=== PATIENT | female | born 1960 | race Caucasian/White ===

== ENCOUNTER → 2017-09-04 | Outpatient (CLI) | payer BC ==
[~2017-09-04] MED LIST: CLON-365 PO; CYCL-259 PO; HYDR-882 PO; SERT25TA PO
== END | disposition home or self-care (01) ==
LOC: STAR 14:44
PROVIDERS: ATTEND Neurological Surgery
DX: Z01.818 Encounter for other preprocedural examination (principal); M51.36 Other intervertebral disc degeneration, lumbar region
CPT/HCPCS: 36415; 71020; 80048; 81003; 85025; 85610; 85730; 93005

== ENCOUNTER 2017-09-09 07:51 | Inpatient (IN) | payer BC ==
[2017-09-04 15:20] VITALS: BP 119/82
[2017-09-04 16:04] LABS: BLOOD UREA NITROGEN 16 mg/dL (7-18)
[2017-09-04 16:25] LABS: HEMATOCRIT 49.7 % (34.6-47.8); HEMOGLOBIN 16.7 g/dL (11.7-16.4)
[~2017-09-09] VITALS: Ht 172.7 cm; Wt 68.0 kg
[~2017-09-09 07:51] MED LIST changes: +BACITRACIN 50,000 UNIT ONE; +BUPIVACAINE 0.25% ONE; +BUPIVACAINE/PF 0.5% ONE; +EPINEPHRINE 1 MG/ML, 1ML ONE; +LIDOCAINE/PF 1%, 30ML ONE; +THROMBIN 5,000 UNIT VIAL TP ONE
[2017-09-09] MEDS ORDERED: LIDOCAINE 1%, 2ML ONE (08:09)
[2017-09-09] MEDS ORDERED: LACTATED RINGERS 1,000 ML IV SCH (08:12)
[2017-09-09] MEDS ORDERED: LIDOCAINE 1%, 2ML SQ PRN (08:30)
[2017-09-09] MEDS ORDERED: FLU VACC QS2017-18 (36MOS+) UP/PF 0.5 ML IM-VACC ONE (09:00)
[2017-09-09] MEDS ORDERED: REMIFENTANIL 2 MG ONE (11:10)
[2017-09-09] MEDS ORDERED: PROPOFOL 10 MG/ML, 20ML ONE ×2 (11:10→11:15)
[2017-09-09] MEDS ORDERED: PROPOFOL 50 ML ONE (11:10)
[2017-09-09] MEDS ORDERED: FENTANYL PF 100 MCG/2ML ONE ×3 (11:11→15:31)
[2017-09-09] MEDS ORDERED: MIDAZOLAM 1 MG/ML, 2ML ONE (11:11)
[2017-09-09] MEDS ORDERED: GLYCOPYRROLATE 0.2MG/1ML, 5ML ONE (11:15)
[2017-09-09] MEDS ORDERED: ONDANSETRON 2MG/ML, 2ML ONE (11:15)
[2017-09-09] MEDS ORDERED: SUCCINYLCHOLINE 20 MG/ML, 10ML ONE (11:15)
[2017-09-09] MEDS ORDERED: DEXAMETHASONE 4 MG/ML, 1ML ONE (11:15)
[2017-09-09] MEDS ORDERED: CEFAZOLIN 1,000 MG ONE (11:15)
[2017-09-09] MEDS ORDERED: METOCLOPRAMIDE 5 MG/ML, 2ML ONE (11:15)
[2017-09-09] MEDS ORDERED: KETAMINE 10 MG/ML, 20ML ONE (11:15)
[2017-09-09] MEDS ORDERED: LABETALOL 5MG/ML, 20ML IV PRN (12:00)
[2017-09-09] MEDS ORDERED: ONDANSETRON 2MG/ML, 2ML IVPush PRN ×2 (12:00→15:00)
[2017-09-09] MEDS ORDERED: hydrALAzine 20 MG/ML, 1ML IV PRN (12:00)
[2017-09-09] MEDS ORDERED: EPHEDRINE 50 MG/ML, 1ML IVPush PRN (12:00)
[2017-09-09] MEDS ORDERED: MIDAZOLAM 1 MG/ML, 2ML IV PRN (12:00)
[2017-09-09] MEDS ORDERED: ALBUTEROL SULFATE 2.5 MG/3 ML NPPB PRN (12:00)
[2017-09-09] MEDS ORDERED: OXYcodone 5 MG/5 ML ORAL.SOL UDC PO PRN (12:00)
[2017-09-09] MEDS ORDERED: MEPERIDINE/PF 25MG/0.5ML IVPush PRN (12:00)
[2017-09-09] MEDS ORDERED: METOCLOPRAMIDE 5 MG/ML, 2ML IV PRN (12:00)
[2017-09-09] MEDS ORDERED: VANCOMYCIN 1,000 MG ONE (12:08)
[2017-09-09] MEDS ORDERED: HYDROmorphone 1 MG/ML, 1ML ONE (12:25)
[2017-09-09] MEDS ORDERED: VANCOMYCIN 1,000 MG IM ONE (13:50)
[2017-09-09] MEDS ORDERED: HYDROmorphone 2 MG/ML, 1ML ONE (14:44)
[2017-09-09] MEDS: FENTANYL PF 100 MCG/2ML IV PRN ×4 (14:45→15:37)
[2017-09-09] MEDS: HYDROmorphone 1 MG/ML, 1ML IV PRN ×4 (14:47→15:19)
[2017-09-09] MEDS ORDERED: HYDROcodone/APAP 5/325 TABLET PO PRN (15:00)
[2017-09-09] MEDS ORDERED: DIPHENHYDRAMINE 50 MG CAPSULE PO PRN (15:00)
[2017-09-09] MEDS ORDERED: PROMETHAZINE 25 MG/ML, 1ML IM PRN (15:00)
[2017-09-09] MEDS ORDERED: DIPHENHYDRAMINE 50 MG/ML, 1ML IVPush PRN (15:00)
[2017-09-09] MEDS ORDERED: LABETALOL 5MG/ML, 20ML IVPush PRN (15:00)
[2017-09-09] MEDS ORDERED: BISACODYL 10 MG SUPP PR PRN (15:00)
[2017-09-09] MEDS ORDERED: PHARMACY MAY ADJ FOR RENAL FX MC PRN (15:00)
[2017-09-09 18:45] VITALS: BP 112/73
[2017-09-09] MEDS: SODIUM CHLORIDE FLUSH 10ML SYR IVF SCH (19:58)
[2017-09-09] MEDS: CEFAZOLIN PMX 1GM/50ML 50 ML IVPB SCH (19:58)
[2017-09-09] MEDS: METHOCARBAMOL 750 MG TABLET PO PRN (20:03)
[2017-09-09] MEDS: GABAPENTIN 300 MG CAPSULE PO SCH (23:08)
[2017-09-09] MEDS: OXYcodone/APAP 5/325MG TABLET PO PRN (23:08)
[2017-09-09] MEDS: NS + 20MEQ KCL 1,000 ML IV SCH (23:08)
[2017-09-09 23:17] VITALS: BP 121/73
[2017-09-10] MEDS ORDERED: HYDROmorphone 2 MG/ML, 1ML ONE ×5 (00:35→21:37)
[2017-09-10] MEDS: HYDROmorphone 1 MG/ML, 1ML IV PRN ×5 (00:38→21:40)
[2017-09-10] MEDS: CEFAZOLIN PMX 1GM/50ML 50 ML IVPB SCH (03:43)
[2017-09-10] MEDS: OXYcodone/APAP 5/325MG TABLET PO PRN (04:00)
[2017-09-10 04:53] VITALS: BP_SYST 111; BP_SYST 118; BP_DIAS 56; BP_DIAS 76
[2017-09-10] MEDS: METHOCARBAMOL 750 MG TABLET PO PRN (05:49)
[2017-09-10 05:50] LABS: HEMATOCRIT 43.4 % (34.6-47.8); HEMOGLOBIN 14.4 g/dL (11.7-16.4); WHITE BLOOD COUNT 9.1 x10^3/uL (3.4-10)
[2017-09-10 05:55] LABS: BLOOD UREA NITROGEN 12 mg/dL (7-18)
[2017-09-10 07:28] VITALS: BP 101/66
[2017-09-10] MEDS ORDERED: HYDROcodone/APAP 10/325 MG TABLET PO PRN (08:30)
[2017-09-10] MEDS ORDERED: OXYcodone/APAP 10/325MG TABLET PO PRN (08:30)
[2017-09-10] MEDS: SODIUM CHLORIDE FLUSH 10ML SYR IVF SCH ×2 (09:00→21:41)
[2017-09-10] MEDS: METHOCARBAMOL 1,000 MG in DEXTROSE 5% 100 ML IV SCH ×3 (09:15→17:36)
[2017-09-10] MEDS: NS + 20MEQ KCL 1,000 ML IV SCH ×2 (09:15→21:41)
[2017-09-10] MEDS: GABAPENTIN 300 MG CAPSULE PO SCH ×3 (09:16→21:41)
[2017-09-10] MEDS: SERTRALINE 50MG TABLET PO SCH (09:16)
[2017-09-10] MEDS: METHOCARBAMOL 750 MG TABLET PO SCH ×3 (11:00→19:41)
[2017-09-10 13:05] VITALS: BP 109/69
[2017-09-10] MEDS: ENOXAPARIN 30 MG/0.3 ML SQ SCH (15:00)
[2017-09-10 19:28] VITALS: BP 128/77
[2017-09-10] MEDS: SENNA/DOCUSATE TABLET PO PRN (21:49)
[2017-09-11] MEDS: METHOCARBAMOL 1,000 MG in DEXTROSE 5% 100 ML IV SCH (00:45)
[2017-09-11 01:53] VITALS: BP 117/75
[2017-09-11] MEDS: ENOXAPARIN 30 MG/0.3 ML SQ SCH ×2 (02:48→15:54)
[2017-09-11] MEDS ORDERED: HYDROmorphone 2 MG/ML, 1ML ONE ×2 (03:08→05:01)
[2017-09-11] MEDS: HYDROmorphone 1 MG/ML, 1ML IV PRN ×2 (03:10→05:03)
[2017-09-11] MEDS: METHOCARBAMOL 750 MG TABLET PO SCH (05:02)
[2017-09-11 05:34] LABS: HEMATOCRIT 44.3 % (34.6-47.8); HEMOGLOBIN 14.6 g/dL (11.7-16.4); WHITE BLOOD COUNT 7.8 x10^3/uL (3.4-10)
[2017-09-11 05:41] LABS: BLOOD UREA NITROGEN 6 mg/dL (7-18)
[2017-09-11 07:42] VITALS: BP 111/72
[2017-09-11] MEDS: GABAPENTIN 300 MG CAPSULE PO SCH ×3 (08:16→20:36)
[2017-09-11] MEDS: SERTRALINE 50MG TABLET PO SCH (08:18)
[2017-09-11] MEDS: SODIUM CHLORIDE FLUSH 10ML SYR IVF SCH ×2 (08:19→20:53)
[2017-09-11] MEDS: OXYcodone/APAP 10/325MG TABLET PO PRN ×3 (08:22→20:36)
[2017-09-11] MEDS ORDERED: HYDROcodone/APAP 10/325 MG TABLET PO PRN (08:30)
[2017-09-11] MEDS ORDERED: KETOROLAC 30 MG/1 ML IV ONE (08:30)
[2017-09-11] MEDS: NS + 20MEQ KCL 1,000 ML IV SCH ×2 (09:47→17:05)
[2017-09-11 13:30] VITALS: BP 133/75
[2017-09-11] MEDS: MAGNESIUM HYDROXIDE 8%, 30ML UDC PO PRN (14:15)
[2017-09-11] MEDS: KETOROLAC 30 MG/1 ML IV SCH ×2 (14:15→20:36)
[2017-09-11] MEDS: DIAZEPAM 2 MG TABLET PO PRN ×2 (16:44→20:39)
[2017-09-11 19:38] VITALS: BP 135/83
[2017-09-11] MEDS: SENNA/DOCUSATE TABLET PO PRN (20:36)
[2017-09-12] MEDS: ENOXAPARIN 30 MG/0.3 ML SQ SCH (03:00)
[2017-09-12] MEDS: NS + 20MEQ KCL 1,000 ML IV SCH (03:22)
[2017-09-12 03:51] VITALS: BP 108/73
[2017-09-12] MEDS: DIAZEPAM 2 MG TABLET PO PRN (04:07)
[2017-09-12] MEDS: OXYcodone/APAP 10/325MG TABLET PO PRN ×3 (04:07→12:36)
[2017-09-12] MEDS: KETOROLAC 30 MG/1 ML IV SCH (04:57)
[2017-09-12 05:38] LABS: BLOOD UREA NITROGEN 10 mg/dL (7-18)
[2017-09-12 05:42] LABS: HEMATOCRIT 40.9 % (34.6-47.8); HEMOGLOBIN 13.5 g/dL (11.7-16.4); WHITE BLOOD COUNT 5.6 x10^3/uL (3.4-10)
[2017-09-12 08:18] VITALS: BP 135/87
[2017-09-12] MEDS: MAGNESIUM HYDROXIDE 8%, 30ML UDC PO PRN (08:22)
[2017-09-12] MEDS: GABAPENTIN 300 MG CAPSULE PO SCH (08:23)
[2017-09-12] MEDS: SERTRALINE 50MG TABLET PO SCH (08:23)
[2017-09-12] MEDS: SODIUM CHLORIDE FLUSH 10ML SYR IVF SCH (08:25)
[2017-09-12] MEDS ORDERED: METH750T87 PO (08:30)
[2017-09-12] MEDS ORDERED: OXYC-307 PO (08:30)
[2017-09-12] MEDS ORDERED: KETOROLAC 30 MG/1 ML IM SCH (08:30)
[2017-09-12 12:46] VITALS: BP 138/81
== END 2017-09-12 13:15 | disposition home or self-care (01) | DRG 460 ==
LOC: ORIP 07:51 → 4NOR 16:41
PROVIDERS: ADMIT Neurological Surgery; ATTEND Neurological Surgery
PROC: 0SB20ZZ Excision of Lumbar Vertebral Disc, Open Approach (ICD-10-PCS; 2017-09-09)
PROC: 4A11X4G Monitoring of Peripheral Nervous Electrical Activity, Intraoperative, External Approach (ICD-10-PCS; 2017-09-09)
PROC: 0SG00A0 Fusion of Lumbar Vertebral Joint with Interbody Fusion Device, Anterior Approach, Anterior Column, Open Approach (ICD-10-PCS; principal; 2017-09-09 10:30)
DX: M48.062 Spinal stenosis, lumbar region with neurogenic claudication (principal); F32.9 Major depressive disorder, single episode, unspecified; M51.16 Intervertebral disc disorders with radiculopathy, lumbar region; F41.9 Anxiety disorder, unspecified; J45.909 Unspecified asthma, uncomplicated; G89.29 Other chronic pain; M79.7 Fibromyalgia; Z90.49 Acquired absence of other specified parts of digestive tract
CPT/HCPCS: 36415; 71020; 72100; 80048; 81003; 85025; 85610; 85730; C1713; J0171; J0690; J1100; J1170; J1885; J2250; J2270; J2405; J2704; J3010; J3370; J3480; J3490; C1762; J0330; J2765; J2800; J7120